=== PATIENT | female | born 1960 | race Caucasian/White ===

== ENCOUNTER → 2017-09-24 | Outpatient (CLI) | payer BC | END | disposition home or self-care (01) | LOC: C.RDSM 11:34 | PROVIDERS: ATTEND Physical Medicine & Rehabilitation Sports Medicine | DX: M25.522 Pain in left elbow (principal) ==

== ENCOUNTER → 2017-10-22 | Outpatient (CLI) | payer BC, OTHER ==
[~2017-10-22] MED LIST: ASPI81TA28 PO; CITA20TA9 PO; MULT-506 PO
--- NOTE | 2017-10-22 11:41 | DIAGNOSTIC IMAGING REPORT ---
L UPPER EXT JOINT WITHOUT CLINICAL HISTORY: 57 years-old Female presenting with left medial elbow pain. TECHNIQUE: Multisequence, multiplanar MR imaging of the left elbow was performed without the use of intravenous contrast. IV contrast: None. COMPARISON: Correlation made to plain radiographs from 09/24/2017.. FINDINGS: Localizer images: Unremarkable. The previous radiographs of the left elbow demonstrated calcification and fragmentation at the medial epicondyle at the expected origin of the common flexor tendon and ulnar collateral ligament complex. On today's MR, bony edema is noted in the medial epicondyles with minimal subchondral cystic change. Subchondral cystic change also noted in the radial aspect of the trochlea. Minimal opposing subchondral edema noted in the volar and medial aspect of the radial head (series 8 image 15). Cartilage thinning at the radiocapitellar articulation may be present. Focal fluid signal intensity within the common flexor tendon at the myotendinous junction (series 5 image 13). The tendon itself appears intact though there is superficial fluid tracking along its origin. Mild overlying superficial subcutaneous edema also noted. There is also discontinuity consistent with at least a partial tear of the medial aspect of the origin of the ulnar collateral ligament (series 7 images 14 and 15). Common extensor tendon intact. Radial collateral ligament intact though thickening may indicate chronic degenerative change. The annular ligament is intact. Lateral ulnar collateral ligament intact. Biceps tendon intact. Brachioradialis tendon intact. Triceps tendon intact. No significant elbow joint effusion. Normal muscle bulk. IMPRESSION: 1. Evidence of partial tear of the common flexor tendon at the myotendinous junction. The tendon remains intact at its origin. Bony edema in the medial epicondyle likely reactive/posttraumatic. 2. At least a partial tear of the ulnar collateral ligament complex at its origin is present. 3. Suspected degenerative change of the radial collateral ligament. 4. Degenerative changes of the radiocapitellar articulation. Electronically signed by: Doug Mcpherson M.D. 10/22/2017 11:40 AM Dictated Date/Time: 10/22/2017 11:32 AM
== END | disposition home or self-care (01) ==
LOC: C.MRI 10:15
PROVIDERS: ATTEND Physical Medicine & Rehabilitation Sports Medicine
DX: M77.02 Medial epicondylitis, left elbow (principal); M25.522 Pain in left elbow; S56.212A Strain of other flexor muscle, fascia and tendon at forearm level, left arm, initial encounter; S53.32XA Traumatic rupture of left ulnar collateral ligament, initial encounter; X58.XXXA Exposure to other specified factors, initial encounter

== ENCOUNTER → 2017-11-14 | Day surgery (SDC) | payer BC, OTHER ==
[2017-10-31 14:22] VITALS: Ht 160 cm; Wt 60.0 kg
[~2017-11-14] VITALS: Ht 160 cm; Wt 60.0 kg
[~2017-11-14] MED LIST changes: +ATROPINE SULFATE 0.1 MG/ML 5ML SYR IV PRN; +BUPIVACAINE 0.5 % 5 MG/1 ML MPF 30ML VIAL ONE; +CEFAZOLIN 1000MG IV PUSH 5 ML IV SCH; +DEXAMETHASONE SOD INJ 4 MG/ML VIAL ONE; +EpHEDrine SULFATE INJ 50 MG/ML AMP IV PRN; +FENTANYL CITRATE INJ 50 MCG/1 ML 2 ML VIAL IV PRN; +FENTANYL CITRATE INJ 50 MCG/1 ML 2 ML VIAL ONE; +HYDR-5688 PO; +KETOROLAC TROMETHAMINE 30 MG/ML VIAL ONE; +LACTATED RINGER'S 1000ML 1,000 ML IV SCH; +LIDOCAINE HCL 2% 2 ML VIAL (20MG/ML) ONE; +LIDOCAINE/EPINEPHRINE 1% 20 ML VIAL ONE; +MIDAZOLAM HCL 1 MG/ML 2ML VIAL ONE; +MoRPHine SULFATE 2 MG/ML CARP IV PRN; +MoRPHine SULFATE 4 MG/ML 1 ML CARP\\VIAL IV PRN; +ONDANSETRON INJ 2 MG/ML 2 ML VIAL IV PRN; +ONDANSETRON INJ 2 MG/ML 2 ML VIAL ONE; +OXYCODONE/ACETAMINOPHEN 5-325 TAB PO PRN; +PROPOFOL IV EMULSION 10 MG/ML 20 ML VIAL IV ONE; +SODIUM CHLORIDE 0.9% 1000ML 1,000 ML IV SCH
--- NOTE | 2017-11-14 11:53 | History & Physical Bridge Note ---
H&P Re-Evaluation Bridge Note: I have examined the patient, reviewed the History & Physical and in the interval since the performance of the History & Physical I have noted the following changes of clinical significance: No changes noted
--- NOTE | 2017-11-14 14:16 | Discharge Instructions-SurgCtr ---
Discharge Instructions Date of Service Nov 14, 2017. Visit Reason for Visit: Left Elbow Cubital Tunnel Syndrome, Medial Epicond Discharge Discharge Diagnosis / Problem: left elbow cubital tunnel entrapment Discharge Goals Goal(s): Decrease discomfort, Improve function, Increase independence Activity Recommendations Activity Limitations: per Instructions/Follow-up section Weightbearing Status: Left non-weightbearing Anesthesia . Post Anesthesia Instructions: If you have had General Anesthesia or IV Sedation: * Do not drive today. * Resume driving when surgeon permits. * Do not make important decisions or sign legal documents today. * Call surgeon for: 1. Temperature elevations greater than 101 degrees F. 2. Uncontrollable pain. 3. Excessive bleeding. 4. Persistent nausea and vomiting. 5. Medication intolerance (nausea, vomiting or rash). * For nausea and vomiting use only clear liquids such as: tea, soda, bouillon until nausea subsides, then gradually increase diet as tolerated. * If you have any concerns or questions, call your surgeon's office. If physician is unavailable and it is an emergency, call 911 or go to the nearest emergency room. . Instructions / Follow-Up Instructions / Follow-Up DIET: * Resume previous diet. MEDICATIONS: * Please take your prescriptions as instructed at your pre-op appointment and/ or see medication discharge instructions listed above. * If concerns develop, call your physician's office at . SPECIAL CARE INSTRUCTIONS: * Ice to left elbow as needed for pain and swelling. Apply ice for 15-20 minutes 2-3 times a day. * Elevate left upper extremity as needed for pain and swelling. * Keep dressing clean, dry, intact. Splint on at all times left arm. Sling left arm for comfort. * No heavy pushing, pulling, or lifting with your left arm. * No use of your left arm * Keep splint on at all times. * Your surgical extremity may be discolored due to prepping agents used on the skin. A bluish-green tint is a normal variant and should not cause alarm. Call your doctor at [phone] if: * Temperature above 101 degrees * Pain not relieved by pain medicine ordered * There is increased drainage or redness from any incision * You have any unanswered questions, problems or concerns. FOLLOW UP VISIT: * If not already scheduled, please call the office at to schedule a follow-up appointment. * You have a physical therapy appointment on 11/18/2017 at 1:00 PM. * You have a follow-up scheduled with Dr. Garcia on 11/27/2017 at 1:00 PM Diet Recommendations Home Diet: no limitations, resume previous diet Pending Studies Studies pending at discharge: no Medical Emergencies . Who to Call and When: Medical Emergencies: If at any time you feel your situation is an emergency, please call 911 immediately. . Non-Emergent Contact Non-Emergency issues call your: Surgeon Call Non-Emergent contact if: temperature is above 101, your pain is not controlled, your pain is worsening, your pain is unusual for you, wound has increased drainage, wound has increased redness, wound has increased pain, you have any medication questions . . "Provider Documentation" section prepared by Shweta Garza. . [place] Drug Monitoring Program Search Results: patient reviewed within database, no issues identified
--- NOTE | 2017-11-14 15:33 | [facility] Post Operative Brief Note ---
Immediate Operative Summary Operative Date Nov 14, 2017. Pre-Operative Diagnosis Ulnar neuropathy, medial condylitis, Left Elbow Pain Post-Operative Diagnosis Ulnar neuropathy, medial condylitis Procedure(s) Performed Left Elbow Submuscular Ulnar Nerve Transposition with Medial Epicondyle Debridement Surgeon Dr. Garcia Gun Stock Checker Surgeon(s) ramon Bird PA Estimated Blood Loss 10ml Findings medial epicondylitis Specimens A: medial epicondylitis Anesthesia LMA Complication(s) None Disposition Recovery Room / PACU
--- NOTE | 2017-11-14 15:55 | [facility] Operative Report ---
Operative Report Operative Date Nov 14, 2017. Pre-Operative Diagnosis Ulnar neuropathy, medial condylitis, Left Elbow Pain Post-Operative Diagnosis Ulnar neuropathy, medial condylitis Procedure(s) Performed Left Elbow Submuscular Ulnar Nerve Transposition with Medial Epicondyle Debridement Surgeon Dr. Garcia Criminal Justice Department Chair Surgeon(s) ramon Bird PA Estimated Blood Loss 10ml Findings Cubital tunnel syndrome left elbow Specimens A: medial epicondylitis Drains none Anesthesia LMA Complication(s) None Disposition Recovery Room / PACU Indications Patient is a 57-year-old female with complaints of left arm and hand paresthesias times many months. He is progressively worsened and she is failed conservative treatment. X-rays were negative for any bony abnormality. Due to her failure of conservative treatment surgical intervention was discussed. She wished to proceed with surgery. Risks and complications were discussed and informed consent was obtained. Description of Procedure She was taken to the operating room and placed under general anesthesia. She was given 1 g of IV Ancef for surgical prophylaxis. Timeout was performed. She was prepped and draped in routine sterile fashion. I was present during the entire case, please see Dr. Garcia's operative report for further detail. Patient was awakened and transferred to the recovery room in stable condition. I attest to the content of the Intraoperative Record and any orders documented therein. Any exceptions are noted below.
[2017-11-14 16:22] VITALS: TEMP 36.4
--- NOTE | 2017-11-14 16:34 | Anesthesia Progress Nt - [facility] ---
Anesthesia Post Op Note Date & Time Nov 14, 2017 at 16:34 Vital Signs Pain Intensity: 0 Vital Signs Past 12 Hours Date Time Temp Pulse Resp B/P (MAP) Pulse Ox O2 Delivery O2 Flow Rate FiO2 11/14/17 16:20 118/56 11/14/17 16:19 78 12 99 11/14/17 16:19 78 12 11/14/17 16:15 117/61 11/14/17 16:14 81 9 11/14/17 16:14 79 9 98 11/14/17 16:10 122/75 11/14/17 16:09 82 7 11/14/17 16:09 82 7 99 11/14/17 16:05 102/83 11/14/17 16:04 80 12 100 11/14/17 16:04 83 12 11/14/17 16:01 129/68 11/14/17 15:59 82 16 100 11/14/17 15:59 83 16 11/14/17 15:55 124/68 11/14/17 15:54 81 15 11/14/17 15:54 15 11/14/17 15:51 112/75 11/14/17 15:50 36.5 96 16 143/65 98 Mask 6 11/14/17 15:49 89 11/14/17 15:49 89 143/65 99 11/14/17 11:48 37.0 51 22 105/53 (70) 97 Room Air Notes Mental Status: alert / awake / arousable, participated in evaluation Pt Amnestic to Procedure: Yes Nausea / Vomiting: adequately controlled Pain: adequately controlled Airway Patency, RR, SpO2: stable & adequate BP & HR: stable & adequate Hydration State: stable & adequate Anesthetic Complications: no major complications apparent
[2017-11-14 16:49] VITALS: BP 116/74; PULSE 75; O2SAT 98
--- NOTE | 2017-11-14 18:46 | OPERATIVE REPORT ---
DATE OF OPERATION: 11/14/2017 PREOPERATIVE DIAGNOSIS: Left elbow medial epicondylitis and cubital tunnel syndrome. POSTOPERATIVE DIAGNOSIS: Same. PROCEDURE: Submuscular transposition of the left ulnar nerve and a debridement of the medial flexure pronator tendon attachment. SURGEON: Dr. Garcia. INCLUSION SPECIAL EDUCATION TEACHER: AVIS Contreras and Ildefonso Harkins, fellow. ANESTHESIA: Laryngeal mask. INDICATIONS OF PROCEDURE: The patient is a 57-year-old female with signs and symptoms of medial epicondylitis and ulnar neuropathy. Her epicondylitis has been refractory to nonsurgical methods of management. She has evidence of ulnar neuropathy on the nerve test. She wished to undergo the aforementioned procedure. PROCEDURE IN DETAIL: Informed consent was obtained. The patient identified as Ritika Burr. She identified the operative site as the left elbow. I marked with my initials and a preop surgical time out was performed. A preop dose of IV antibiotics was given. She was taken to the operating room, positioned supine on the operating room table and a laryngeal mask anesthetic was administered. A tourniquet was applied about the left upper arm. The limb was prepped and draped in the usual sterile fashion. DVT prophylaxis will be done with early patient ambulation. Examination revealed minus 10 degrees of extension, full flexion, full forearm rotation and no lateral or medial right-sided elbow laxity. The limb was exsanguinated with the Esmarch, tourniquet inflated to 225 mmHg. An approximately 10-12 cm medial incision was made over the course of the ulnar nerve. Blunt dissection was performed down to subcutaneous tissues. The medial antebrachial cutaneous nerve was identified and traced proximally and distally preserved and protected throughout the procedure. The ulnar nerve was identified proximally, released proximally of its fascial attachments and dissected free in a careful fashion. Distally, it was released through the cubital tunnel, there were no obvious areas of constriction, it was traced down between the 2 heads of the flexure carpi ulnaris and the nerve branches below the epicondyle were dissected out and preserved. The medial intermuscular septum was resected. A subcutaneous flap was elevated up off the flexor pronator muscles. A Z cut was made in the flexure pronator muscle mass proximal posterior and distal more anterior. The center of the Z lengthening was the medial conjoined tendon. Upon opening this area, the typical ball Ro fish fleshy type material was identified. The distal flap was elevated proximally towards the medial epicondyle preserving a thin rim of tissue. I then debrided the medial conjoined tendon and the underlying degenerative tendinosis attachment posterior to this. The muscle mass was dissected carefully off the elbow joint capsule, preserving the ulnar collateral ligament. The fascia over the pronator teres was released proximally, what appeared to be several small nerve branches approaching or entering into the pronator teres were protected and preserved. The tendinosis tissue was sent for specimen. The scratch test was utilized. The nerve was then easily transposed anterior to the epicondyle and it showed no evidence of kinking, pinching or stretching with full elbow motion. The fascial constrictions were released both distally and proximally. Proximally for a distance of 10-12 cm and distally from the epicondyle distance of about 6-8 cm. The pronator teres was then shifted distally and #1 Vicryl was utilized to reapproximate this to the fascial stump on the medial epicondyle. Prior to this, the medial condyle was debrided with a curette and rongeur to remove any tendinotic tissue. I then placed 2 loose stitches between the more distal muscle and the ulnar head of the FCU. The nerve was protected and preserved. The medial antebrachial cutaneous nerve was then placed posterior to the epicondyle. The tourniquet was let down after 70 minutes of inflation. Meticulous hemostasis was performed. Hemostasis and dissection was performed with bipolar electrocautery. The wound was copiously irrigated with sterile saline and then closed with 3-0 Vicryl and a 3-0 Prolene subcuticular stitch. The arm was placed into a soft bulky sterile dressing with a posterior splint holding the elbow in neutral. She was also given a sling. She was then awakened from anesthesia without difficulty and taken to recovery room in stable condition. The resected tendinosis tissue was sent for specimen. There were no complications. Counts were correct at the end of case. Blood loss was 10 mL. At the conclusion of the operation, I spoke to her and informed him of my findings and detailed postoperative instructions were given. She will be rehabilitated according to the submuscular ulnar nerve transposition plan. She will likely have a splint with some restrictions on wrist and forearm range of motion. I attest to the content of the Intraoperative Record and any orders documented therein. Any exception s are noted below.
== END | disposition home or self-care (01) ==
LOC: X.SURG 10:23
PROVIDERS: ATTEND Physical Medicine & Rehabilitation Sports Medicine
DX: M77.02 Medial epicondylitis, left elbow (principal); G56.22 Lesion of ulnar nerve, left upper limb; Z79.82 Long term (current) use of aspirin; Z79.899 Other long term (current) drug therapy